=== PATIENT | male | born 1960 | race Caucasian/White ===

== ENCOUNTER 2017-06-02 10:08 | Emergency (ER) | payer BC ==
--- NOTE | 2017-06-02 11:30 | ERNOTE ---
Lower Extremity HPI - Narrative Date of Service: 06/02/17 - General Lower Extremities Pain: knee: right Time Seen by Provider: 06/02/17 11:10 Source: patient, family Exam Limitations: no limitations - Immun/Allergies/Home Medications Immunizations: IMMUNIZATION HX Immunizations Up to Date Yes History of Influenza Vaccine No Hx Pneumococcal Vaccination No Allergies/Adverse Reactions: Allergies Allergy/AdvReac Type Severity Reaction Status Date / Time Penicillins Allergy Verified 05/02/16 15:19 Home Medications: HOME MEDICATIONS Garlic 05/02/16 [Last Taken Unknown] Laurel El [Laurel Berries] 565 mg PO 05/02/16 [Last Taken Unknown] Indomethacin 50 mg PO TID PRN #24 capsule 06/02/17 [Last Taken Unknown] Sour Fernandez Extract [Tart Fernandez Extract] 1,000 mg PO 06/02/17 [Last Taken Unknown] traMADol HCL [Tramadol HCl] 50 mg PO QID PRN #20 tablet 06/02/17 [Last Taken Unknown] - History of Present Illness Narrative: 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 Thought it was probably his gout but his family was concerned he may have a blood clot. States the whole leg was swollen with pain mainly in the left knee. Denies any calf pain. Occurred: last week Location of Incident: other - No acute injury. Method of Injury: Reports: no apparent injury Loss of Consciousness: Reports: no loss of consciousness Modifying Factors - (Improves): Reports: rest Modifying Factors - (Worsens): Reports: jarring Associated Symptoms: Reports: none - swelling and pain in the knee. No fevers. Other Injuries: Reports: none Subsequent Symptoms: Reports: other - Denies any sensory loss Review of Systems - Narrative Narrative: See HPI. States the discomfort has caused him to walk with a limp. - Review of Systems Constitutional: Present: no symptoms reported Respiratory: Present: no symptoms reported Cardiology: Present: no symptoms reported Gastrointestinal/Abdominal: Present: no symptoms reported Musculoskeletal: Present: joint pain, joint swelling, other - Of the left knee. Active but limited ROM of the left knee. No symptoms in the ankle or foot. Skin: Present: other - Denies any erythema or warmth in the leg. Just swelling. Neurological: Present: other - Denies any loss of sensation distally. Endocrine: Present: no symptoms reported Hematologic/Lymphatic: Present: no symptoms reported - Patient's Past Medical History Patient History - Medical: Other Patient History - Cardiac/Respiratory: No pertinent hx Patient History - Cancer: No Hx of Cancer Patient History - Surgical Procedures: Back Surgery Patient History - Other: None - Social History Living Situations: spouse Psych History: No pertinent hx Smoking Status: Former smoker Have you smoked in the past 12 months: No Do you dip or chew tobacco: No Alcohol Use: none Drug Use: none - Immunizations Immunizations Up to Date: Yes Hx Pneumococcal Vaccination: No History of Influenza Vaccine: No Physical Exam - Physical Exam General Appearance: Present: wd/wn, alert, no apparent distress Respiratory: Present: no respiratory distress Peripheral Pulses: N=norm/S=strong/W=weak/B=bound/A=absent: Dorsalis-pedis (R): Normal, Dorsalis-pedis (L): Normal Extremity Exam: Present: decreased range of motion, other - Definite swelling of calf up through the knee into the thigh. No warmth or erythema. Thais's negative. Does have superficial varicose veins of the calf and popliteal area. Most significant point tenderness is of the MCL and LCL. Neurological Exam: Present: alert, oriented, normal mood/affect Skin Exam: Present: normal color, warm/dry Lymphatic Exam: Present: no adenopathy ED Progress - Results and Orders Patient's Lab Results:: I have reviewed the patient's lab results. - Vital Signs Patient's Vital Signs:: I have reviewed the patient's vital signs. Vital Signs: Vital Signs 06/02/17 10:18 Temperature 36.9 C Pulse Rate 101 H Respiratory 16 Rate Blood Pressure 137/97 O2 Sat by Pulse 97 Oximetry - CT/Ultrasound CT/Ultrasound Narrative: Reviewed results of US with no DVT found. - Progress/Reassessment Chief Complaint: Lower Extremity Pain/ Injury Progress:: Improved Progress Note-Subjective: 06/02/17 12:21 Offered tramadol but patient states he wants nothing at this time for pain. 06/02/17 14:12 Patient did finally take some tramadol due to worsening pain and did have improvement. Departure Clinical Impression: Gout attack Qualifiers: Gout site: knee Gout etiology: idiopathic Laterality: left Qualified Code(s): M10.062 - Idiopathic gout, left knee - Departure Disposition: Home Follow Up Needed Condition: Good Additional Instructions: No signs of a DVT. However your current condition could be from gout or a muscle strain. Will treat with indomethacin as well as tramadol for the pain. Follow up with family provider in 2-3 days. If you worsen let us know. No work for 3 days at least. Do not take the indomethacin with aleve, ibuprofen, or etc. Prescriptions: Indomethacin 50 mg PO TID PRN #24 capsule PRN Reason: Pain traMADol HCL [Tramadol HCl] 50 mg PO QID PRN #20 tablet PRN Reason: Pain
[2017-06-02] MEDS ORDERED: traMADol HCL 50 MG TABLET ONE ×2 (11:51→13:54)
[2017-06-02] MEDS: traMADol HCL 50 MG TABLET PO ONE ×2 (12:15→13:55)
[2017-06-02 13:56] VITALS: BP 156/94
== END 2017-06-02 14:12 | disposition home or self-care (01) ==
LOC: ER 10:08
DX: M10.062 Idiopathic gout, left knee (principal); Z87.891 Personal history of nicotine dependence